=== PATIENT | male | born 1965 | race Caucasian/White ===

== ENCOUNTER 2022-01-28 10:53 | Outpatient (CLI) | payer SELFPAY ==
[2022-01-28 12:13] LABS: Absolute Lymphocyte Count 1.66 X10^3/uL (0.83-4.51); Basophil# 0.03 X10^3/uL; Basophil% 0.5 % (0-1); Eosinophil# 0.17 X10^3/uL; Eosinophils% 3.1 % (0-5); Hematocrit 44.5 % (40-54); Hemoglobin 15.4 g/dL (13.0-16.5); Lymphocyte # 1.66 X10^3/ul (0.83-4.51); Lymphocyte % 30.3 % (19-41); Mean Corp Hgb Conc 34.6 g/dL (32-36); Mean Corpuscular Hgb 30.4 pg (27.0-32.0); Mean Corpuscular Volume 87.9 fL (80-94); Mean Platelet Vol. 10.3 fl (6.2-12.0); NRBC Flagged by Analyzer 0 % (0-5); Neutrophil # 2.99 X10^3/uL (2.7-7.7); Neutrophil % 54.7 % (47-70); Platelet Count 290 K/mm3 (150-450); RBC Distribution Width CV 13.2 % (11.6-14.6); RBC Distribution Width SD 42.5 fl (35.1-43.9); Red Blood Count 5.06 M/mm3 (4.6-6.2); White Blood Count 5.5 K/mm3 (4.4-11.0)
[2022-01-28 12:54] LABS: Anion Gap 2 (5-15); BUN 17 mg/dL (7-18); Calcium,Total 9.3 mg/dL (8.5-10.1); Chloride 109 mmol/L (98-107); Cholesterol 265 mg/dL (200); Creatinine, Serum 1.21 mg/dL (0.70-1.30); EST Glomerular Filtration Rate 66 mL/min (>60); Est Glom Filt Rate - Afr Amer 80 mL/min (>60); Glucose 82 mg/dL (74-106); High Density Lipoprotein 39 mg/dL; Potassium 4.1 mmol/L (3.5-5.1); Sodium Level 138 mmol/L (136-145); Thyroid Stim Hormone (TSH) 1.28 uIU/mL (0.358-3.74); Triglycerides 147 mg/dL; Very Low Density Lipoprotein 29 mg/dL (5-40)
== END 2022-01-28 23:59 | disposition home or self-care (01) ==
PROVIDERS: Visit Provider Internal Medicine Cardiovascular Disease
DX: R06.09 Other forms of dyspnea (principal)
CPT/HCPCS: 36415; 80048; 80061; 84443; 85025

== ENCOUNTER 2022-02-25 12:43 | Outpatient (CLI) | payer SELFPAY ==
--- NOTE | 2022-02-25 12:47 | STEWCON_ITS ---
Reason For Study: chest pain Stress Results Protocol: [facility] Protocol WITH DEFINITY Maximum Predicted HR: 163 bpm Target HR: 139 bpm % Maximum Predicted HR: 87 % DurationHeart Rate Stage (mm:ss) (bpm) BP Comment Baseline 51 132/825cc Definity for entire test Stage 1 3:00 103 172/62 Stage 2 3:00 115 160/62no chest pain, increased SOB Stage 3 2:10 141 / increased SOB Recovery 82 122/70 Stress Duration: 8:10 mm:ss Maximum Stress HR: 141 bpm Baseline Echocardiogram Findings Stress Echo Wall motion Data Resting WM Intermediate WM Stress WM Doppler Measurements & Calculations MV E max rob: 59.9 cm/sec TR max rob: 231.5 cm/sec MV A max rob: 64.1 cm/sec TR max P.4 mmHg MV E/A: 0.93 ECHO/Stress Test Echo W/Contrast Interpretation Summary Exercise stress echocardiogram. 57-year-old with a history of chest pain. Stress protocol: Resting EKG demonstrates sinus bradycardia with a rate of 55 bpm normal interva ls are noted resting blood pressure is 132/82 mmHg. The patient exercised according to regular Corey protocol for total duration of 8 minutes and 10 seconds the maximum heart rate attained was 157 bp m which was 96% of max impact at heart rate the maximum workload was 10.1 metabolic equivalents. A t rest there were no ST or T wave changes noted to suggest ischemia occasional premature ventricular complexes were noted. At peak exercise upsloping ST changes were noted with did not meet the c riteria for ischemia. No clinical angina was noted the test was terminated due to leg fatigue. Stress echocardiogram. The stress echocardiographic images were performed with Definity enhancement. The resting echocardiogram demonstrated preserved left ventricular systolic fun ction estimated at 5 5%. No wall motion abnormalities are noted. The patient exercised according to the regular Corey protocol and at peak exerc ise there was thickening of all youngblood and contraction of low ventricular cavity size and peak ing of ejection fraction at 65%. No wall motion abnormalities were present. Conclusion: Stress echocardiogram with no evidence of ischemia at a high workload. Preserved ejection fraction. Ordering Physician: Joseluis Sullivan Referring Physician: Joseluis Sullivan Performed By: Tamiko Marcano, MARGO, RVT
== END 2022-02-25 23:59 | disposition home or self-care (01) ==
LOC: CVS 12:44
PROVIDERS: Visit Provider Internal Medicine Cardiovascular Disease
DX: R06.00 Dyspnea, unspecified (principal); R07.9 Chest pain, unspecified
CPT/HCPCS: 93017; 93350; Q9957; A4216; C8928